=== PATIENT | male | born 1965 | race Caucasian/White ===

== ENCOUNTER 2017-11-27 11:48 | Day surgery (SDC) | payer OTHER ==
[~2017-11-27] VITALS: Ht 177.8 cm; Wt 67.4 kg
[~2017-11-27 11:48] MED LIST: BP MEDICATION; CHLO25 PO; ESCI10
== END 2017-11-27 14:05 | disposition home or self-care (01) ==
LOC: ORSCSDS 11:48
PROVIDERS: Surgery
PROC: 0DBN8ZX Excision of Sigmoid Colon, Via Natural or Artificial Opening Endoscopic, Diagnostic (ICD-10-PCS; principal; 2017-11-27 13:00)
DX: Z12.11 Encounter for screening for malignant neoplasm of colon (principal); D12.5 Benign neoplasm of sigmoid colon; Z83.71 Family history of colonic polyps; I10 Essential (primary) hypertension; F17.210 Nicotine dependence, cigarettes, uncomplicated; Z79.899 Other long term (current) drug therapy
CPT/HCPCS: 88305; J0330; J1980; J2250; J2405; J7120

== ENCOUNTER 2021-01-13 02:32 | Inpatient (IN) | payer OTHER ==
[~2021-01-13] VITALS: Ht 177.8 cm; Wt 68.2 kg
[~2021-01-13 02:32] MED LIST changes: -ESCI10; +ESCI10 PO
[2021-01-13 02:58] LABS: BASOPHILS ABSOLUTE AUTO 0.01 K/mm3 (0.00-0.23); BASOPHILS PERCENT AUTO 0 % (0-2); EOSINOPHILS ABSOLUTE AUTO 0.02 K/mm3 (0.00-0.68); EOSINOPHILS PERCENT AUTO 0 % (0-6); Hematocrit 39.1 % (37.0-53.0); Hemoglobin 14.1 g/dL (13.5-17.5); IMMATURE GRAN ABSOLUTE AUTO 0.01 K/mm3 (0.00-0.10); IMMATURE GRAN PERCENT AUTO 0 % (0-1); LYMPHOCYTES PERCENT AUTO 14 % (21-46); MONOCYTES ABSOLUTE AUTO 1.28 K/mm3 (0.16-1.47); MONOCYTES PERCENT AUTO 22 % (4-13); Mean Corpuscular HGB 34.6 pg (26.0-34.0); Mean Corpuscular HGB Conc 36.1 g/dL (31.5-36.5); Mean Corpuscular Volume 96 fL (80-100); Mean Platelet Volume 10.5 fL (9.1-12.4); NEUTROPHILS ABSOLUTE AUTO 3.79 K/mm3 (1.96-9.15); NEUTROPHILS PERCENT AUTO 64 % (41-73); Platelet Count 62 K/mm3 (150-400); RDW Coefficient Variation 12.6 % (11.7-14.2); Red Blood Cell Count 4.07 M/mm3 (4.30-5.90); White Blood Cell Count 5.91 K/mm3 (4.00-11.30)
[2021-01-13 03:10] LABS: Alanine Aminotransfer (ALT/SGP 28 U/L (12-78); Albumin, Blood 3.2 g/dL (3.4-5.0); Albumin/Globulin Ratio 0.7 (0.8-1.8); Alk Phos 77 U/L (50-136); Anion Gap 13 mmol/L (6-16); Aspartate Aminotrans (AST/SGOT 67 U/L (12-37); Bilirubin, Total 1.3 mg/dL (0.1-1.0); Blood Urea Nitrogen 8 mg/dL (8-24); Bun/Creatinine Ratio 11.1 (12.0-20.0); CO2, Blood 25 mmol/L (21-32); Calcium, Blood 9.1 mg/dL (8.5-10.1); Chloride, Blood 93 mmol/L (98-108); Creatinine, Blood 0.72 mg/dL (0.60-1.20); Ethanol (Alcohol), Blood, Med 23 mg/dL; Globulin, Blood 4.4 g/dL (2.2-4.0); Glomerular Filtration Rate >60 (60-); Glucose, Blood 118 mg/dL (70-99); Potassium, Blood 2.8 mmol/L (3.5-5.5); Sodium, Blood 131 mmol/L (136-145); Total Protein, Blood 7.6 g/dL (6.4-8.2)
--- NOTE | 2021-01-13 06:49 | NUR ---
ADMIT PT TO ROOM FROM ER. ALERT. ES 13. WITH PT AT BEDSIDE. ATIVAN 2MG ADMINISTERED. BANNANA BAG INFUSING. ON RA. STATES SEIZING AT 0000 LAST NIGHT. 12 PACK DRINKING HX PER NIGHT AND LAST DRINK WAS AROUNF 1999. PT'S VSS CURRENTLY. RESPONDING WELL TO ATIVAN BUT MAY NEED ANOTHER DOSE OF 2MG. PT QUITE TREMULOUS. UNABLE TO COMPLETE FULL ADMISSION ASSESMENT DUE TO TIME CONSTRAINT. PT ARRIVED AT AROUND 0600. BED ALARM IN PLACE. WILL CONTINUE TO MONITOR UNTIL SHIFT CHANGE.
--- NOTE | 2021-01-13 09:45 | NUR ---
PT ALERT TO SELF. TELE SHOWING SINUS TACH WITH HR 100-110. DENIES CHEST PAIN. ON ROOM AIR SATING ABOVE 94%. COMPLAINS OF HEADACHE, MEDICATED PER EMAR WITH TYLENOL. RESTLESS IN BED, HANGING LEGS OVER SIDE. SWEATY TO TOUCH, TREMORS NOTICED. CIWA SCORED 13. LIBRIUM GIVEN PER EMAR. SEIZURE PRECAUTIONS IN PLACE. NPO AT THIS TIME PER DR. POLK. SKIN REDDENED THROUGHOUT WITH DARK RED/PURPLE SPOTS LOCATED ON ABDOMINAL PANT LINE, AND COCCYX. BANNANA BAG INFUSED, AND K INFUSING. VITAL SIGNS STABLE. PT SLEEPING IN BED, AUDIBLE SNORING. WILL CONTINUE TO MONITOR.
[2021-01-13 12:32] LABS: Albumin, Blood 2.9 g/dL (3.4-5.0); Anion Gap 6 mmol/L (6-16); Blood Urea Nitrogen 6 mg/dL (8-24); Bun/Creatinine Ratio 10.9 (12.0-20.0); CO2, Blood 29 mmol/L (21-32); Calcium, Blood 8.8 mg/dL (8.5-10.1); Chloride, Blood 98 mmol/L (98-108); Creatinine, Blood 0.55 mg/dL (0.60-1.20); Glomerular Filtration Rate >60 (60-); Glucose, Blood 93 mg/dL (70-99); Phosphorus, Blood 1.9 mg/dL (2.5-4.9); Potassium, Blood 3.5 mmol/L (3.5-5.5); Sodium, Blood 133 mmol/L (136-145)
[2021-01-13 16:50] LABS: Anion Gap 5 mmol/L (6-16); Blood Urea Nitrogen 6 mg/dL (8-24); Bun/Creatinine Ratio 11.2 (12.0-20.0); CO2, Blood 28 mmol/L (21-32); Calcium, Blood 8.6 mg/dL (8.5-10.1); Chloride, Blood 101 mmol/L (98-108); Creatinine, Blood 0.54 mg/dL (0.60-1.20); Glomerular Filtration Rate >60 (60-); Glucose, Blood 88 mg/dL (70-99); Potassium, Blood 3.7 mmol/L (3.5-5.5); Sodium, Blood 134 mmol/L (136-145)
--- NOTE | 2021-01-13 17:58 | NUR ---
SHIFT SUMMARY: PT ALERT TO SELF AND WHEN VISITING. ON ROOM AIR SATING ABOVE 94%. TELE SHOWING SINUS TACH WITH HR 100-110'S. DENIES CHEST PAIN. CIWA RANGING FROM 8-14. MEDICATED PER EMAR WITH LIBRIUM AND ATIVAN. POTASSUM INFUSED THIS SHIFT. CURRENTLY HAS THIAMINE INFUSING INTO RIGHT FOREARM IV. SIEZURE PRECAUTIONS MAINTAINED. VITAL SIGNS REMAIN STABLE. NO ACUTE CHANGES. PATIENT SLEEPING THROUGHOUT SHIFT. ABLE TO TAKE SIPS OF WATER WITH LIBRIUM. NPO AT THIS TIME DUE TO SLEEPINESS. USING URINAL WITH ASSISTANCE. NOT CALLING APPROPRIATLY. WILL CONTINUE TO MONITOR AND REPORT OFF.
--- NOTE | 2021-01-13 21:32 | NUR ---
ASSUMED CARE OF PATIENT AT APPROXIMATELY 1905 FROM JULIO Camarena RN. PATIENT ALERT AND ORIENTED TO SELF AND . PATIENT NOT ABLE TO STATE DATE; REPORTS 2000; HALLUCINATING; CIWA 9; LIBRIUM GIVEN PER ORDER. CONFUSED; BED ALARM IN PLACE; WEAK; FALL RISK. SR ON TELE; OXYGEN SATURATION ABOVE 90% ON ROOM AIR. VOIDS IN URINAL; ATTENDS IN PLACE. PIV X2 S/L. PATIENT CURRENTLY RESTING IN BED; CALL LIGHT IN REACH; BED IN LOWEST POSITION; BED ALARM ON.
--- NOTE | 2021-01-13 22:12 | NUR ---
PATIENT ATTEMPTED TO AMBULATED; IRRITABLE; ANXIOUS; CONFUSED; PCT ROUNDED WHEN PATIENT TRYING TO GET UP
[2021-01-14 04:33] LABS: BASOPHILS ABSOLUTE AUTO 0.02 K/mm3 (0.00-0.23); BASOPHILS PERCENT AUTO 0 % (0-2); EOSINOPHILS ABSOLUTE AUTO 0.15 K/mm3 (0.00-0.68); EOSINOPHILS PERCENT AUTO 3 % (0-6); Hemoglobin 13.5 g/dL (13.5-17.5); IMMATURE GRAN ABSOLUTE AUTO 0.02 K/mm3 (0.00-0.10); IMMATURE GRAN PERCENT AUTO 0 % (0-1); LYMPHOCYTES ABSOLUTE AUTO 1.36 K/mm3 (0.84-5.20); LYMPHOCYTES PERCENT AUTO 26 % (21-46); MONOCYTES ABSOLUTE AUTO 0.82 K/mm3 (0.16-1.47); MONOCYTES PERCENT AUTO 16 % (4-13); Mean Corpuscular HGB 34.7 pg (26.0-34.0); Mean Corpuscular HGB Conc 34.6 g/dL (31.5-36.5); Mean Corpuscular Volume 100 fL (80-100); Mean Platelet Volume 10.6 fL (9.1-12.4); NEUTROPHILS ABSOLUTE AUTO 2.84 K/mm3 (1.96-9.15); NEUTROPHILS PERCENT AUTO 55 % (41-73); Platelet Count 57 K/mm3 (150-400); RDW Coefficient Variation 12.7 % (11.7-14.2); RDW Standard Deviation 47.1 fL (35.1-46.3); Red Blood Cell Count 3.89 M/mm3 (4.30-5.90); White Blood Cell Count 5.21 K/mm3 (4.00-11.30)
[2021-01-14 04:57] LABS: Alanine Aminotransfer (ALT/SGP 26 U/L (12-78); Albumin, Blood 2.7 g/dL (3.4-5.0); Albumin/Globulin Ratio 0.7 (0.8-1.8); Alk Phos 65 U/L (50-136); Anion Gap 3 mmol/L (6-16); Aspartate Aminotrans (AST/SGOT 86 U/L (12-37); Bilirubin, Total 1.7 mg/dL (0.1-1.0); Blood Urea Nitrogen 5 mg/dL (8-24); Bun/Creatinine Ratio 9.9 (12.0-20.0); CO2, Blood 29 mmol/L (21-32); Calcium, Blood 8.2 mg/dL (8.5-10.1); Chloride, Blood 103 mmol/L (98-108); Globulin, Blood 3.9 g/dL (2.2-4.0); Glomerular Filtration Rate >60 (60-); Glucose, Blood 85 mg/dL (70-99); Potassium, Blood 3.4 mmol/L (3.5-5.5); Sodium, Blood 135 mmol/L (136-145); Total Protein, Blood 6.6 g/dL (6.4-8.2)
--- NOTE | 2021-01-14 06:16 | NUR ---
PATIENT SLEPT ABOUT EIGHT HOURS LAST NIGHT. DID NOT USE CALL LIGHT; YELLED OUT INTO HALLWAY; CONFUSED. WANTS TO GET OUT OF BED BUT VERY TREMULOUS AND WEAK. FALL RISK. CIWA INCREASING T/O NIGHT; MEDICATED MULTIPLE TIMES. PATIENT HALLUCINATING OFF AND ON. VSS. NO OTHER ACUTE CHANGES TO REPORT.
--- NOTE | 2021-01-14 10:49 | NUR ---
ADMIT: 01/12/21 DISCHARGE: DX: Alcohol withdrawal seizure CC: cpeabody THERESA CALL: RESIDENCE: home with Candie CAREGIVER: Candie Mom [place] DX: alcohol abuse, htn, cervical spondylosis, chronic back pain, liver disease, depression, see list DME: no record CCM: no record HOME HEALTH: no record SUMMARY: Admit 01/12/21 01/13/21 no eta for discharge at this time. cp IMPRESSION: 1. Alcohol withdrawal seizure. It was a witnessed seizure by the patient's significant other described as tonic-clonic seizure lasted about 2 to 5 minutes. We will do p.r.n. Ativan as needed for seizures and seizure precautions.
--- NOTE | 2021-01-14 18:07 | NUR ---
SHIFT NOTE PT HAS BECOME MORE CLEAR MENTALLY T/O THE SHIFT, PT HAS RECIEVED MULTIPLE DOSES OF LIBRIUM AND 1 DOSE OF ATIVAN THIS SHIFT WHICH WERE ALL TOLERATED WELL. PT EATING AND DRINKING WELL. HE DID TAKE HIS MEDICATIONS IN APPLESAUCE TODAY. RESTRAINTS WERE APPLIED THIS MORNING PT WAS REMOVING LINES, KICKING AT STAFF, AND ATTEMPTING TO EXIT THE BED. PT REPOSITIONED REGULARLY T/O THE DAY. ATTENDED AND LINENS WERE CHANGED, TIM CARE PERFORMED. PT IS ORIENTED TO SELF AND FAMILY. PT WITH GARBLED SPEECH, SLOW TO ANSWER QUESTIONS
--- NOTE | 2021-01-14 21:35 | NUR ---
ASSUMED CARE OF PATIENT AT APPROXIMATELY 1905 FROM FATOU Marks RN. PATIENT ALERT AND ORIENTED TO SELF AND . PATIENT NOT ABLE TO STATE DATE; REPORTS January; HALLUCINATING; CIWA 13; LIBRIUM GIVEN PER ORDER. CONFUSED; BED ALARM IN PLACE; WEAK; FALL RISK. SOFT WRIST RESTRAINTS. ST ON TELE; OXYGEN SATURATION ABOVE 90% ON ROOM AIR. INCONTINENT; ATTENDS IN PLACE. PIV X2 S/L. PATIENT CURRENTLY RESTING IN BED; CALL LIGHT IN REACH; BED IN LOWEST POSITION; BED ALARM ON.
[2021-01-15 04:47] LABS: BASOPHILS ABSOLUTE AUTO 0.03 K/mm3 (0.00-0.23); BASOPHILS PERCENT AUTO 1 % (0-2); EOSINOPHILS ABSOLUTE AUTO 0.16 K/mm3 (0.00-0.68); EOSINOPHILS PERCENT AUTO 3 % (0-6); Hematocrit 41.3 % (37.0-53.0); Hemoglobin 14.4 g/dL (13.5-17.5); IMMATURE GRAN ABSOLUTE AUTO 0.02 K/mm3 (0.00-0.10); IMMATURE GRAN PERCENT AUTO 0 % (0-1); LYMPHOCYTES ABSOLUTE AUTO 1.33 K/mm3 (0.84-5.20); LYMPHOCYTES PERCENT AUTO 22 % (21-46); MONOCYTES PERCENT AUTO 15 % (4-13); Mean Corpuscular HGB 34.7 pg (26.0-34.0); Mean Corpuscular HGB Conc 34.9 g/dL (31.5-36.5); Mean Corpuscular Volume 100 fL (80-100); Mean Platelet Volume 10.5 fL (9.1-12.4); NEUTROPHILS ABSOLUTE AUTO 3.49 K/mm3 (1.96-9.15); NEUTROPHILS PERCENT AUTO 59 % (41-73); Platelet Count 65 K/mm3 (150-400); RDW Coefficient Variation 12.3 % (11.7-14.2); RDW Standard Deviation 45.3 fL (35.1-46.3); Red Blood Cell Count 4.15 M/mm3 (4.30-5.90); White Blood Cell Count 5.93 K/mm3 (4.00-11.30)
[2021-01-15 05:02] LABS: Alanine Aminotransfer (ALT/SGP 40 U/L (12-78); Albumin, Blood 3.1 g/dL (3.4-5.0); Albumin/Globulin Ratio 0.7 (0.8-1.8); Alk Phos 71 U/L (50-136); Anion Gap 8 mmol/L (6-16); Aspartate Aminotrans (AST/SGOT 137 U/L (12-37); Bilirubin, Total 1.5 mg/dL (0.1-1.0); Blood Urea Nitrogen 8 mg/dL (8-24); Bun/Creatinine Ratio 14.7 (12.0-20.0); CO2, Blood 29 mmol/L (21-32); Calcium, Blood 8.8 mg/dL (8.5-10.1); Chloride, Blood 98 mmol/L (98-108); Creatinine, Blood 0.55 mg/dL (0.60-1.20); Globulin, Blood 4.5 g/dL (2.2-4.0); Glomerular Filtration Rate >60 (60-); Glucose, Blood 82 mg/dL (70-99); Sodium, Blood 135 mmol/L (136-145); Total Protein, Blood 7.6 g/dL (6.4-8.2)
--- NOTE | 2021-01-15 12:18 | NUR ---
PT ARRIVED TO THE MEDICAL FLOOR VIA BED, PT IS DROWYS AWAKENS WITH VERBAL STIMULI, PT ORIENTED TO THE ROOM CALL SYSTEM, HOWEVER, THE PT IS IN SOFT WRIST RESTRAINTS WILL ROUND HOURLY, PT APPEARS TO BE BREATHING EASILY ON RA AT THIS TIME, BED ALARM ON, REPORT TAKEN FROM FATOU RUBI IN PCU
--- NOTE | 2021-01-15 13:19 | NUR ---
01/15/21- Per chart review with Dr. Abernathy, no plan for d/c at this time. Called Adriana with [facility] Substance abuse case management. She will get a referral placed and pt set-up in their system. Pt's catalytic case operator will be Naida Hollis. They will call with update when the pt is set up with date/time of assessment for treatment/services. -stephanie
--- NOTE | 2021-01-15 16:13 | NUR ---
01/15/21- Per chart review with Dr. Abernathy, no plan for d/c at this time. Called Adriana with [facility] Substance abuse case management. She will get a referral placed and pt set-up in their system. Pt's immigration case manager will be Naida Hollis. They will call with update when the pt is set up with date/time of assessment for treatment/services. Received call from [facility] requesting pt information since they received a referral from pt's insurance. Provided requested information. Went to meet with pt, he was however asleep and not able to arouse. was in the room. Spoke with her about treatment options and that pt's insurance has sent referral over to [facility]. stated that he is not able to do the assessment at this time. She would like him to get help. Provided with information about [facility] in [facility]. states that she will talk with him once he is coherent enough to have conversation. -stephanie
--- NOTE | 2021-01-15 18:32 | NUR ---
PT WAS A TRANSFER FROM THE PCU TODAY AROUND 1200, THE PT IS ALERT ORIENTED TO SELF, THE PT HAD SOME CONFUSED SPEACH AND RESTLESSNESS, THE PT WAS IN SOFT WRIST RESTRAINTS, PT WAS GIVEN LIBRIUM 50MG AND ATIVAN 2MG FOR CWAW SCORE OF 11, THE PT SINCE THEN HAS BEEN SLEEPING, RESTRAINTS WERE DC'D, THE PT APPEARS TO BE BREATHING EASILY, WAS AT THE BEDSIDE THIS AFTERNOON, CALL LIGHT IN REACH PT REPOSTIONED T/O THE DAY, WILL CONTINUE TO MONITOR AND ASSESS FOR CHANGES
--- NOTE | 2021-01-16 04:13 | NUR ---
CLUBHOUSE ATTENDANT SUMMARY PT A/O X2-3. CIWAS MOSTLY STABLE RANGING FROM 4-8. PT DOES NOT APPEAR LIKE HE IS HAVING HALLUCINATIONS. SLIGHTLY AGITATED. MEDICATED ONCE SO FAR WITH IV ATIVAN. VSS. PT DENIES PAIN AND NAUSEA. NO SOB NOTED. CALL LIGHT WITHIN REACH, BED ALARM ON. WILL CONTINUE TO MONITOR.
[2021-01-16 04:53] LABS: BASOPHILS ABSOLUTE AUTO 0.02 K/mm3 (0.00-0.23); BASOPHILS PERCENT AUTO 0 % (0-2); EOSINOPHILS ABSOLUTE AUTO 0.17 K/mm3 (0.00-0.68); EOSINOPHILS PERCENT AUTO 3 % (0-6); Hematocrit 39.7 % (37.0-53.0); Hemoglobin 13.7 g/dL (13.5-17.5); IMMATURE GRAN ABSOLUTE AUTO 0.03 K/mm3 (0.00-0.10); IMMATURE GRAN PERCENT AUTO 1 % (0-1); LYMPHOCYTES ABSOLUTE AUTO 1.31 K/mm3 (0.84-5.20); LYMPHOCYTES PERCENT AUTO 20 % (21-46); MONOCYTES ABSOLUTE AUTO 1.33 K/mm3 (0.16-1.47); MONOCYTES PERCENT AUTO 20 % (4-13); Mean Corpuscular HGB 34.4 pg (26.0-34.0); Mean Corpuscular HGB Conc 34.5 g/dL (31.5-36.5); Mean Corpuscular Volume 100 fL (80-100); Mean Platelet Volume 10.4 fL (9.1-12.4); NEUTROPHILS ABSOLUTE AUTO 3.75 K/mm3 (1.96-9.15); NEUTROPHILS PERCENT AUTO 57 % (41-73); Platelet Count 82 K/mm3 (150-400); RDW Coefficient Variation 12.5 % (11.7-14.2); RDW Standard Deviation 46.1 fL (35.1-46.3); Red Blood Cell Count 3.98 M/mm3 (4.30-5.90); White Blood Cell Count 6.61 K/mm3 (4.00-11.30)
[2021-01-16 05:18] LABS: Alanine Aminotransfer (ALT/SGP 40 U/L (12-78); Albumin/Globulin Ratio 0.7 (0.8-1.8); Alk Phos 68 U/L (50-136); Anion Gap 8 mmol/L (6-16); Aspartate Aminotrans (AST/SGOT 135 U/L (12-37); Bilirubin, Total 1.5 mg/dL (0.1-1.0); Blood Urea Nitrogen 9 mg/dL (8-24); Bun/Creatinine Ratio 17.2 (12.0-20.0); CO2, Blood 25 mmol/L (21-32); Calcium, Blood 8.8 mg/dL (8.5-10.1); Chloride, Blood 103 mmol/L (98-108); Creatinine, Blood 0.52 mg/dL (0.60-1.20); Globulin, Blood 4.2 g/dL (2.2-4.0); Glomerular Filtration Rate >60 (60-); Glucose, Blood 89 mg/dL (70-99); Potassium, Blood 3.7 mmol/L (3.5-5.5); Sodium, Blood 136 mmol/L (136-145); Total Protein, Blood 7.2 g/dL (6.4-8.2)
--- NOTE | 2021-01-16 16:04 | NUR ---
PATIENT IS EXTREMELY LETHARGIC THIS SHIFT. HE DID REQUIRE A DOSE OF IV LORAZEPAM AT THE START OF THE SHIFT DUE TO HIGH CIWA SCORE AND INCREASING BEHAVIORS. HE HAS SINCE BEEN MAINTAINING CIWA SCORES <8. WHEN VOCAL THE PATIENT IS NONSENSICAL. PATIENT IS IN A DAKSHA VEST DUE TO ALOC TO INCREASE HIS SAFETY. IS AT BEDSIDE AT THIS TIME. CALL LIGHT IN REACH.
--- NOTE | 2021-01-17 05:09 | NUR ---
MACHINE I CUTTER SUMMARY PT A/O X3. HE IS SLOW TO RESPOND AND APPEARS WITHDRAWN, HOWEVER ABLE TO ANSWER APPROPRIATE QUESTIONS. SLEPT WELL TOINIGHT. CIWAS BEEN 8 OR LESS. MEDICATED ONCE TONIGHT WITH ATIVAN. PT CURRENTLY ASLEEP. VSS. NO ACUTE CHANGES. BED ALARM ON, CALL LIGHT WITHIN REACH.
[2021-01-17 05:15] LABS: BASOPHILS ABSOLUTE AUTO 0.03 K/mm3 (0.00-0.23); BASOPHILS PERCENT AUTO 1 % (0-2); EOSINOPHILS PERCENT AUTO 3 % (0-6); Hematocrit 40.1 % (37.0-53.0); Hemoglobin 13.7 g/dL (13.5-17.5); IMMATURE GRAN ABSOLUTE AUTO 0.02 K/mm3 (0.00-0.10); IMMATURE GRAN PERCENT AUTO 0 % (0-1); LYMPHOCYTES ABSOLUTE AUTO 1.19 K/mm3 (0.84-5.20); LYMPHOCYTES PERCENT AUTO 19 % (21-46); MONOCYTES PERCENT AUTO 23 % (4-13); Mean Corpuscular HGB 34.1 pg (26.0-34.0); Mean Corpuscular HGB Conc 34.2 g/dL (31.5-36.5); Mean Corpuscular Volume 100 fL (80-100); Mean Platelet Volume 10.6 fL (9.1-12.4); NEUTROPHILS ABSOLUTE AUTO 3.34 K/mm3 (1.96-9.15); NEUTROPHILS PERCENT AUTO 54 % (41-73); Platelet Count 84 K/mm3 (150-400); RDW Coefficient Variation 12.4 % (11.7-14.2); RDW Standard Deviation 45.2 fL (35.1-46.3); Red Blood Cell Count 4.02 M/mm3 (4.30-5.90); White Blood Cell Count 6.18 K/mm3 (4.00-11.30)
[2021-01-17 05:34] LABS: Alanine Aminotransfer (ALT/SGP 46 U/L (12-78); Albumin, Blood 2.9 g/dL (3.4-5.0); Albumin/Globulin Ratio 0.7 (0.8-1.8); Alk Phos 64 U/L (50-136); Anion Gap 5 mmol/L (6-16); Aspartate Aminotrans (AST/SGOT 123 U/L (12-37); Bilirubin, Total 1.5 mg/dL (0.1-1.0); Blood Urea Nitrogen 7 mg/dL (8-24); Bun/Creatinine Ratio 13.7 (12.0-20.0); CO2, Blood 27 mmol/L (21-32); Calcium, Blood 8.6 mg/dL (8.5-10.1); Chloride, Blood 102 mmol/L (98-108); Creatinine, Blood 0.51 mg/dL (0.60-1.20); Globulin, Blood 4.2 g/dL (2.2-4.0); Glomerular Filtration Rate >60 (60-); Glucose, Blood 102 mg/dL (70-99); Potassium, Blood 4.1 mmol/L (3.5-5.5); Sodium, Blood 134 mmol/L (136-145); Total Protein, Blood 7.1 g/dL (6.4-8.2)
--- NOTE | 2021-01-17 15:32 | NUR ---
PATIENT HAS HAD AN UNEVENTFUL DAY. NO NEED FOR IV ATIVAN THIS SHIFT SO FAR. PATIENT HAS BEEN VERY CALM, LETHARGIC AND COOPERATIVE WITH STAFF. IV FLUIDS CONTINUE PER EMAR. CIWA SCORES HAVE BEEN STABLE. COMES IN T/O THE DAY TO ASSIST WITH PATIENT CARE AND IS VERY HELPFUL. PATIENT RESTING IN BED AT THIS TIME. CALL LIGHT IN REACH.
--- NOTE | 2021-01-17 19:15 | NUR ---
ASSUMED CARE RECEIVED REPORT FROM CHLOE Roe RN. PT ASLEEP, IN NO ACUTE DISTRESS. NO ACUTE NEEDS ASSESSED AT THIS TIME. CALL LIGHT, POSSESSIONS IN REACH, BED IN LOW POSITION WITH ALARMS ON.
--- NOTE | 2021-01-18 05:36 | NUR ---
GANG BOSS SUMMARY PT ASLEEP, IN NO ACUTE DISTRESS. HAS HAD AN UNEVENTFUL NIGHT, PLEASANT AND COOPERATIVE WITH CARES. VS REVIEWED,WNL. CIWAS STABLE. SLEPT T/O MUCH OF THE NIGHT. NO ACUTE CHANGES IN CONDITION TO REPORT OVERNIGHT. DENIES PAIN OR NEEDS AT THIS TIME. CALL LIGHT, POSSESSIONS IN REACH, BED IN LOW POSITION WITH ALARMS ON. WILL CONTINUE TO PROVIDE CARE UNTIL REPORT GIVEN TO ONCOMING RN.
[2021-01-18 14:29] LABS: BASOPHILS ABSOLUTE AUTO 0.04 K/mm3 (0.00-0.23); BASOPHILS PERCENT AUTO 1 % (0-2); EOSINOPHILS ABSOLUTE AUTO 0.12 K/mm3 (0.00-0.68); EOSINOPHILS PERCENT AUTO 2 % (0-6); Hematocrit 42.3 % (37.0-53.0); Hemoglobin 14.8 g/dL (13.5-17.5); IMMATURE GRAN ABSOLUTE AUTO 0.02 K/mm3 (0.00-0.10); IMMATURE GRAN PERCENT AUTO 0 % (0-1); LYMPHOCYTES ABSOLUTE AUTO 1.28 K/mm3 (0.84-5.20); LYMPHOCYTES PERCENT AUTO 18 % (21-46); MONOCYTES ABSOLUTE AUTO 1.61 K/mm3 (0.16-1.47); MONOCYTES PERCENT AUTO 22 % (4-13); Mean Corpuscular HGB 34.3 pg (26.0-34.0); Mean Corpuscular Volume 98 fL (80-100); Mean Platelet Volume 10.1 fL (9.1-12.4); NEUTROPHILS ABSOLUTE AUTO 4.17 K/mm3 (1.96-9.15); NEUTROPHILS PERCENT AUTO 58 % (41-73); Platelet Count 112 K/mm3 (150-400); RDW Coefficient Variation 12.2 % (11.7-14.2); RDW Standard Deviation 44.7 fL (35.1-46.3); Red Blood Cell Count 4.31 M/mm3 (4.30-5.90); White Blood Cell Count 7.24 K/mm3 (4.00-11.30)
--- NOTE | 2021-01-18 18:50 | NUR ---
SHIFT SUMMARY YE ATE BREAKFAST WITH ASSIST AND THEN HAD HIS PILLS IN APPLESAUCE FOLLOWED BY A LARGE AMOUNT OF PROJECTILE VOMITTING. SWEATY DURING THIS EPISODE, ENDORSED SEEING THINGS ON THE GROUND, SCORED HIGH ON CIWAH AND GOT IV ATIVAN. NO COMPLAINTS OF NAUSEA THE REST OF THE SHIFT, NO MORE EPISODES OF NAUSEA. SOME QUESTION OF ASPIRATION EVENT, OFFICE CLERK CARMEN ORDERED. VISITED. UP WITH AO1 AND GAIT BELT TO BS, CONTINENT / INCONT THIS SHIFT. HAD BM IN BSC. AFTER INITIAL MORNING ATIVAN, HE NO LONGER WAS SCORING ABOVE 8 ON CIWAH, NO MORE ATIVAN GIVEN. TOOK PILLS WHOLE IN APPLESAUCE. CONFUSED BUT DIRECTABLE CALL LIGHT IN REACH, BED ALARM ON, WCTM
--- NOTE | 2021-01-19 08:58 | NUR ---
called dr christianson and informed him that pt is tachycardic at 120 and temp of 100.8 and pt complaining of indigestion. assayer at bedside. awaiting orders
--- NOTE | 2021-01-19 16:59 | NUR ---
01/19/21- RECEIVED CALL FROM ADMISSION AT [facility], LET THEM KNOW THAT PT IS NOT CAPABLE OF GOING THROUGH AN ASSESSMENT AT THIS TIME DUE TO BEING IN WITHDRAWAL AND CONCERN OF ALCOHOL INDUCED DEMENTIA. PER CHART REVIEW WITH DR. PANDA, THERE IS CONCERN THE PT HAS ASPIRATED. NO PLAN FOR D/C AT THIS TIME. -THOR 01/18/21 (LATE ENTRY)- PER CHART REVIEW WITH DR. PANDA, PT IS STILL ACTIVELY WITHDRAWING FROM ALCOHOL. PT'S CIWA WAS 17 AT 9:45. PT AND OT WERE NOT ABLE TO WORK WITH PT DUE TO WITHDRAW SYMPTOMS. THERE ARE SOME CONCERNS THAT THE PT HAS ALCOHOL INDUCED DEMENTIA. HIS HAS REPORTED TO STAFF THAT PAST THERAPY WAS NOT EFFECTIVE AND HE WAS UNABLE TO PARTICIPATE PROPERLY. THE RECOMMENDATION IS FOR PT TO GO TO [facility]. THERE IS ALSO CONCERN ABOUT PT'S OPIOID ADDICTION/DEPENDENCE BECAUSE HE HAS BEEN TAKING ILLICIT OXYCODONE FOR BACK PAIN. WONDER IF PT WOULD DO WELL ON BUPRENORPHINE. -JAJAW
--- NOTE | 2021-01-19 19:04 | NUR ---
SHIFT SUMMARY YE SCORED LOW ON CIWAH SCALE, DIDN'T GO ABOVE 8. HELD AFTERNOON LIBRIUM DUE TO PT'S SLEEPINESS. WAKENED UP MUCH MORE AFTER THIS, COMPLAINED OF PAIN HE HAS CHRONICALLY IN NECK AND BACK. TYLENOL AND HEAT PACK WERE INEFFECTIVE, CALLED DR PANDA AND GOT PO OXY. PT VOMITTED AGAIN THIS MORNING AFTER HIS BREAKFAST AND MEDS, NOT NAUSEOUS BEFOREHAND. DR PANDA AWARE, ORDERED XR ESOPHOGRAM. PER XR, HE IS TO BE NPO AFTER MIDNIGHT, NIGHT NURSE AWARE. HUMANITIES DIVISION CHAIR CAME AND RECOMMENDING PUREE, NECTAR THICK BY SPOON, NO STRAWS. CXR DONE. CALL LIGHT IN REACH, BED ALARM ON, [facility]
--- NOTE | 2021-01-20 05:39 | NUR ---
PT with hx of alcohol withdrawl seizure continues high fall risk porr safety awareness, little insight into his poor balance & unsafe mobility. He has very ataxic gait, can't be left unsupervised on BSC or BR because he wi;ll stand unassisted & has fallen here recently. Scheduled librium 25 mg PT slept most of shift woke up & watched tv intermittantly. NPO for esophogram. Speech therapy changed to pureed diet & thickened liquid by spoon. was in to feed 50% dinner. Using kpad for chronic pain. Had oxycodone 5 mg end of day shift & asking for more after several hours. Oxy 5 ordered Q 12 hrs PRN. CIWA score 12 & 7. Seizure & fall precautions continue.
--- NOTE | 2021-01-20 12:11 | NUR ---
MRI SCREENING FORM RECIEVED- PT UNABLE TO ANSWER QUESTIONS TO FILL OUT THE FORM. ATTEMPTED TO CALL PT SO AND WAS UNABLE TO REACH. WILL ATTEMPT TO CALL AGAIN LATER.
[2021-01-21 05:19] LABS: BASOPHILS ABSOLUTE AUTO 0.07 K/mm3 (0.00-0.23); BASOPHILS PERCENT AUTO 1 % (0-2); EOSINOPHILS ABSOLUTE AUTO 0.32 K/mm3 (0.00-0.68); EOSINOPHILS PERCENT AUTO 4 % (0-6); Hematocrit 41.4 % (37.0-53.0); Hemoglobin 14.3 g/dL (13.5-17.5); IMMATURE GRAN ABSOLUTE AUTO 0.05 K/mm3 (0.00-0.10); IMMATURE GRAN PERCENT AUTO 1 % (0-1); LYMPHOCYTES ABSOLUTE AUTO 1.62 K/mm3 (0.84-5.20); LYMPHOCYTES PERCENT AUTO 19 % (21-46); MONOCYTES ABSOLUTE AUTO 1.77 K/mm3 (0.16-1.47); MONOCYTES PERCENT AUTO 21 % (4-13); Mean Corpuscular HGB 34.9 pg (26.0-34.0); Mean Corpuscular HGB Conc 34.5 g/dL (31.5-36.5); Mean Corpuscular Volume 101 fL (80-100); Mean Platelet Volume 10.4 fL (9.1-12.4); NEUTROPHILS ABSOLUTE AUTO 4.61 K/mm3 (1.96-9.15); NEUTROPHILS PERCENT AUTO 55 % (41-73); Platelet Count 133 K/mm3 (150-400); RDW Coefficient Variation 12.6 % (11.7-14.2); RDW Standard Deviation 47.3 fL (35.1-46.3); White Blood Cell Count 8.44 K/mm3 (4.00-11.30)
[2021-01-21 05:40] LABS: Alanine Aminotransfer (ALT/SGP 73 U/L (12-78); Albumin, Blood 2.9 g/dL (3.4-5.0); Albumin/Globulin Ratio 0.7 (0.8-1.8); Alk Phos 60 U/L (50-136); Anion Gap 3 mmol/L (6-16); Aspartate Aminotrans (AST/SGOT 66 U/L (12-37); Bilirubin, Total 0.7 mg/dL (0.1-1.0); Blood Urea Nitrogen 12 mg/dL (8-24); Bun/Creatinine Ratio 20.4 (12.0-20.0); CO2, Blood 33 mmol/L (21-32); Chloride, Blood 98 mmol/L (98-108); Creatinine, Blood 0.59 mg/dL (0.60-1.20); Globulin, Blood 4.2 g/dL (2.2-4.0); Glomerular Filtration Rate >60 (60-); Glucose, Blood 88 mg/dL (70-99); Potassium, Blood 4.2 mmol/L (3.5-5.5); Sodium, Blood 134 mmol/L (136-145); Total Protein, Blood 7.1 g/dL (6.4-8.2)
--- NOTE | 2021-01-21 17:45 | NUR ---
01/21/21- PER CHART REVIEW WITH DR. PANDA, PT IS STILL EXPERIENCING WITHDRAWAL. YANELY WITH [facility] CALLED TO FOLLOW UP ON REFERRAL TO [facility]. DISCUSSED WITH HER PT. HEALTH AND THE CONCERN ABOUT HIM HAVING DEMENTIA AND AT THIS TIME IS NOT APPROPRIATE FOR SCREENING. SHE REQUESTED THAT WHEN/IF PT IMPROVES ENOUGH TO GO TO TREATMENT TO CALL AND HAVE HIM COMPLETE SCREENING. -THOR 01/20/21- PT STILL EXPERIENCING WITHDRAWAL, THERE IS CONCERN HE HAS ALCOHOL INDUCED DEMENTIA. NO PLAN FOR D/C AT THIS TIME. -THOR
--- NOTE | 2021-01-21 18:40 | NUR ---
SHIFT SUMMARY PT AxOx4. SLEEPY, YET COOPERATIVE THIS SHIFT. PT HAD MRI OF SPINE TODAY. REPORTS CHRONIC NECK/BACK PAIN. MEDICATED PER EMAR. CIWA=4. AMBULATED TO BATHROOM TODAY WITH 1 ASSIST/FWW AND GB. IN ROOM WHEN DOCTOR DID ROUNDS, DISCUSSED PLAN OF CARE. PER DR PANDA, PROBABLE DC TO HOME TOMORROW. PT TOLERATING DIET WELL. REPORTS FEELING BACKED UP/CONSTIPATED. SAT ON TOILET AND DRANK PRUNE JUICE TO ENCOURAGE BM. VITALS REVIEWED. PATIENT CURRENTLY RESTING IN BED WITH CALL LIGHT IN REACH.
--- NOTE | 2021-01-22 04:32 | NUR ---
SUMMARY PT HAD NO NEW ISSUES NOTED. PT HAS BEEN RESTING T/O SHIFT. PT TX FOR BACK PAIN PER EMAR. PT HAS AMBULATED TO RESTROOM WELL. PT CURRENTLY SLEEPING IN NO DISTRESS. CALL LIGHT IN REACH.
[2021-01-22 05:49] LABS: BASOPHILS ABSOLUTE AUTO 0.06 K/mm3 (0.00-0.23); BASOPHILS PERCENT AUTO 1 % (0-2); EOSINOPHILS ABSOLUTE AUTO 0.34 K/mm3 (0.00-0.68); EOSINOPHILS PERCENT AUTO 4 % (0-6); Hematocrit 39.2 % (37.0-53.0); Hemoglobin 13.3 g/dL (13.5-17.5); IMMATURE GRAN ABSOLUTE AUTO 0.03 K/mm3 (0.00-0.10); IMMATURE GRAN PERCENT AUTO 0 % (0-1); LYMPHOCYTES ABSOLUTE AUTO 1.63 K/mm3 (0.84-5.20); LYMPHOCYTES PERCENT AUTO 20 % (21-46); MONOCYTES ABSOLUTE AUTO 1.44 K/mm3 (0.16-1.47); MONOCYTES PERCENT AUTO 18 % (4-13); Mean Corpuscular HGB 34.5 pg (26.0-34.0); Mean Corpuscular HGB Conc 33.9 g/dL (31.5-36.5); Mean Corpuscular Volume 102 fL (80-100); Mean Platelet Volume 10.2 fL (9.1-12.4); NEUTROPHILS ABSOLUTE AUTO 4.64 K/mm3 (1.96-9.15); NEUTROPHILS PERCENT AUTO 57 % (41-73); Platelet Count 150 K/mm3 (150-400); RDW Coefficient Variation 12.7 % (11.7-14.2); RDW Standard Deviation 47.8 fL (35.1-46.3); Red Blood Cell Count 3.86 M/mm3 (4.30-5.90); White Blood Cell Count 8.14 K/mm3 (4.00-11.30)
[2021-01-22 06:17] LABS: Alanine Aminotransfer (ALT/SGP 64 U/L (12-78); Albumin, Blood 2.7 g/dL (3.4-5.0); Albumin/Globulin Ratio 0.7 (0.8-1.8); Alk Phos 62 U/L (50-136); Anion Gap 4 mmol/L (6-16); Aspartate Aminotrans (AST/SGOT 53 U/L (12-37); Bilirubin, Total 0.7 mg/dL (0.1-1.0); Blood Urea Nitrogen 13 mg/dL (8-24); Bun/Creatinine Ratio 21.2 (12.0-20.0); CO2, Blood 32 mmol/L (21-32); Calcium, Blood 8.9 mg/dL (8.5-10.1); Chloride, Blood 100 mmol/L (98-108); Creatinine, Blood 0.61 mg/dL (0.60-1.20); Globulin, Blood 4.1 g/dL (2.2-4.0); Glomerular Filtration Rate >60 (60-); Glucose, Blood 85 mg/dL (70-99); Magnesium, Blood 1.7 mg/dL (1.6-2.4); Phosphorus, Blood 4.2 mg/dL (2.5-4.9); Potassium, Blood 4.3 mmol/L (3.5-5.5); Sodium, Blood 136 mmol/L (136-145); Total Protein, Blood 6.8 g/dL (6.4-8.2)
[2021-01-22] MEDS ORDERED: POTA10T PO (16:35)
[2021-01-22] MEDS ORDERED: OXYC5 PO (16:35)
[2021-01-22] MEDS ORDERED: B-1100 M1 PO (16:36)
--- NOTE | 2021-01-22 18:05 | NUR ---
PATIENT DISCHARGE: PATIENT DISCHARGED TO HOME THIS SHIFT. MEDICATION RECONCILIATION COMPLETED; MED LIST FAXED TO [facility]; HARD SCRIPT PROVIDED TO PATIENT FOR CONTROLLED SUBSTANCE. DISCHARGE EDUCATION COMPLETED WITH PATIENT AND FAMILY. PATIENT TRANSPORTED TO EXIT BY [facility] STAFF WITH WHEELCHAIR AT 1650. PATIENT DEPARTED [facility] VIA PRIVATE AUTO.
== END 2021-01-22 16:56 | disposition home or self-care (01) | DRG 897 ==
LOC: ER 02:32 → PCU 02:34 → ERHOLD 02:34 → PCU 05:58 → MEDS 01-15 11:59 → ENPENDDIS 01-22 15:32 → MEDS 01-22 16:56
PROVIDERS: Emergency Medicine; Family Medicine; Hospitalist; ADMIT Family Medicine
DX: F10.231 Alcohol dependence with withdrawal delirium (principal); E87.1 Hypo-osmolality and hyponatremia; Y90.1 Blood alcohol level of 20-39 mg/100 ml; F17.210 Nicotine dependence, cigarettes, uncomplicated; G40.409 Other generalized epilepsy and epileptic syndromes, not intractable, without status epilepticus; E87.6 Hypokalemia; D69.6 Thrombocytopenia, unspecified; F32.9 Major depressive disorder, single episode, unspecified; F10.27 Alcohol dependence with alcohol-induced persisting dementia; R26.0 Ataxic gait; G89.29 Other chronic pain; M54.2 Cervicalgia; R11.12 Projectile vomiting; Z78.1 Physical restraint status
CPT/HCPCS: 36415; 70450; 71046; 72141; 74240; 76705; 80048; 80053; 80069; 82140; 83690; 83735; 84100; 85025; 92526; 92610; 96365; 96366; 96367; 96375; 96376; 97110; 97116; 97162; 97166; 97530; 97535; 99285-25; A9270; G0378; G0480; J2060; J2405; J3010; J3411; J3475; J3480; J7042; J7050

== ENCOUNTER 2021-10-22 21:09 | Inpatient (IN) | payer OTHER ==
[~2021-10-22] VITALS: Ht 175.3 cm; Wt 98.0 kg
[~2021-10-22 21:09] MED LIST changes: +B-1100 M1 PO; -ESCI10 PO; +OXYC5 PO; +POTA10T PO
[2021-10-22 21:46] LABS: BASOPHILS ABSOLUTE AUTO 0.05 K/mm3 (0.00-0.23); BASOPHILS PERCENT AUTO 0 % (0-2); EOSINOPHILS ABSOLUTE AUTO 0.27 K/mm3 (0.00-0.68); EOSINOPHILS PERCENT AUTO 2 % (0-6); Hematocrit 31.2 % (37.0-53.0); Hemoglobin 11.2 g/dL (13.5-17.5); IMMATURE GRAN PERCENT AUTO 1 % (0-1); LYMPHOCYTES ABSOLUTE AUTO 1.82 K/mm3 (0.84-5.20); LYMPHOCYTES PERCENT AUTO 15 % (21-46); MONOCYTES PERCENT AUTO 12 % (4-13); Mean Corpuscular HGB 35.4 pg (26.0-34.0); Mean Corpuscular HGB Conc 35.9 g/dL (31.5-36.5); Mean Corpuscular Volume 99 fL (80-100); Mean Platelet Volume 10.1 fL (9.1-12.4); NEUTROPHILS ABSOLUTE AUTO 8.65 K/mm3 (1.96-9.15); NEUTROPHILS PERCENT AUTO 70 % (41-73); Platelet Count 114 K/mm3 (150-400); RDW Coefficient Variation 16.4 % (11.7-14.2); RDW Standard Deviation 59.4 fL (35.1-46.3); Red Blood Cell Count 3.16 M/mm3 (4.30-5.90); White Blood Cell Count 12.39 K/mm3 (4.00-11.30)
[2021-10-22 22:09] LABS: Alanine Aminotransfer (ALT/SGP 61 U/L (12-78); Albumin, Blood 1.8 g/dL (3.4-5.0); Albumin/Globulin Ratio 0.4 (0.8-1.8); Alk Phos 189 U/L (50-136); Anion Gap 11 mmol/L (6-16); Aspartate Aminotrans (AST/SGOT 155 U/L (12-37); Bilirubin, Total 5.6 mg/dL (0.1-1.0); Blood Urea Nitrogen 16 mg/dL (8-24); Bun/Creatinine Ratio 18.1 (12.0-20.0); CO2, Blood 35 mmol/L (21-32); Calcium, Blood 8.2 mg/dL (8.5-10.1); Chloride, Blood 74 mmol/L (98-108); Creatinine, Blood 0.89 mg/dL (0.60-1.20); Glomerular Filtration Rate >60 (60-); Glucose, Blood 96 mg/dL (70-99); Sodium, Blood 120 mmol/L (136-145); Total Protein, Blood 6.8 g/dL (6.4-8.2); Troponin I <0.015 ng/mL (0.000-0.040)
[2021-10-23 01:58] LABS: BASOPHILS ABSOLUTE AUTO 0.06 K/mm3 (0.00-0.23); BASOPHILS PERCENT AUTO 0 % (0-2); EOSINOPHILS ABSOLUTE AUTO 0.35 K/mm3 (0.00-0.68); EOSINOPHILS PERCENT AUTO 2 % (0-6); Hematocrit 31.1 % (37.0-53.0); Hemoglobin 11.3 g/dL (13.5-17.5); IMMATURE GRAN ABSOLUTE AUTO 0.18 K/mm3 (0.00-0.10); IMMATURE GRAN PERCENT AUTO 1 % (0-1); LYMPHOCYTES ABSOLUTE AUTO 2.61 K/mm3 (0.84-5.20); LYMPHOCYTES PERCENT AUTO 17 % (21-46); MONOCYTES ABSOLUTE AUTO 1.61 K/mm3 (0.16-1.47); MONOCYTES PERCENT AUTO 11 % (4-13); Mean Corpuscular HGB 35.8 pg (26.0-34.0); Mean Corpuscular HGB Conc 36.3 g/dL (31.5-36.5); Mean Corpuscular Volume 98 fL (80-100); Mean Platelet Volume 10.4 fL (9.1-12.4); NEUTROPHILS ABSOLUTE AUTO 10.28 K/mm3 (1.96-9.15); NEUTROPHILS PERCENT AUTO 68 % (41-73); Platelet Count 135 K/mm3 (150-400); RDW Coefficient Variation 16.5 % (11.7-14.2); Red Blood Cell Count 3.16 M/mm3 (4.30-5.90); White Blood Cell Count 15.09 K/mm3 (4.00-11.30)
[2021-10-23] MEDS ORDERED: FURO40 PO (02:01)
--- NOTE | 2021-10-23 05:28 | NUR ---
Received patient AAOX3, CONFUSE AT TIME. Came in for BLE Edema. Pt at , LUNGS CLEAR. He is on fluid restriction 1-2 liters per day. HE is on continuous N/S infusion with Lactic acid 2.5. Patient sleep during the night with no significant changes from the admition. We will continue to monitor patient.
[2021-10-23 08:46] LABS: International Normalized Ratio 1.42; Prothrombin Time Results 14.6 Sec (9.7-11.5)
--- NOTE | 2021-10-23 10:43 | NUR ---
PER , OK TO FEED. NPO AFTER MIDNITE FOR ANGIOGRAM TOMORROW. TROPS TRENDING DOWN. PATIENT DENIES ANY CHEST PAIN OR DISCOMFORT.
--- NOTE | 2021-10-23 12:15 | NUR ---
BACK FROM ULTRASOUND. TOOK OFF 1 3/4 L FLUID . NO BLEEDING AT SITE. BANDAID ON. IV HOOKED BACK UP. PATIENT RESTING AT THIS TIME
[2021-10-23 12:43] LABS: Albumin, Body Fluid 0.1 g/dL
[2021-10-23 12:45] LABS: Protein, Body Fluid 0.3 g/dL
[2021-10-23 12:51] LABS: Lactate Dehydrogenase, Body Fl 28 U/L
[2021-10-23 12:52] LABS: Glucose, Body Fluid 102 mg/dL
[2021-10-23 12:55] LABS: Automated BF WBC Count 0.241 K/mm3 (0-999); Body Fluid WBC Count 241 /mm3 (0-999)
[2021-10-23 13:33] LABS: pH, Body Fluid 7.9
--- NOTE | 2021-10-23 14:02 | NUR ---
UPDATED PATIENT S.O., [facility] [phone], ON PATIENT CONDITION.
[2021-10-23 14:20] LABS: RBC Count, Body Fluid 5 /mm3 (0-0)
[2021-10-23 14:24] LABS: Total Cell Count, Body Fluid 100
[2021-10-23 14:25] LABS: Appearance, Body Fluid Clear (Clear); Color, Body Fluid Yellow (None-Yellow)
--- NOTE | 2021-10-23 14:34 | NUR ---
TALKED TO . OK TO ORDER UA. GIVE LASIX AFTER ALBUMIN. D'C TYLENOL. CAN ORDER PATIENT HOME MEDS OF OXYCODONE 5 MG Q 8 HR.
[2021-10-23 15:03] LABS: Anion Gap 8 mmol/L (6-16); Blood Urea Nitrogen 16 mg/dL (8-24); Bun/Creatinine Ratio 19.6 (12.0-20.0); CO2, Blood 36 mmol/L (21-32); Calcium, Blood 7.7 mg/dL (8.5-10.1); Chloride, Blood 79 mmol/L (98-108); Creatinine, Blood 0.82 mg/dL (0.60-1.20); Glomerular Filtration Rate >60 (60-); Glucose, Blood 90 mg/dL (70-99); Magnesium, Blood 1.7 mg/dL (1.6-2.4); Phosphorus, Blood 2.8 mg/dL (2.5-4.9); Potassium, Blood 3.4 mmol/L (3.5-5.5); Sodium, Blood 123 mmol/L (136-145)
--- NOTE | 2021-10-23 17:11 | NUR ---
ALERT. ORIENTED. UNSTEADY ON FEET. CAN BE BERY UNCOORDINATED MISSED THE URINAL AND URINATED ON FLOOR, TABLE AND WALL. JESE HOSE ON AND NON SKID SOCKS OVER WITH PATIENT AWARE WHY HE HAS THEM ON. MEDICATED FOR CHRONIC BACK PAIN WITH GOOD RESULTS. PATIENT AWARE WHY HE IS GETTING ALBUMIN AND LASIX. UNLABORED RESPIRATIONS. GOOD APPETITE. TELE ON AND HAS BEEN SR ALL SHIFT 80-90'S. TM
--- NOTE | 2021-10-23 18:46 | NUR ---
PATIENT TELLS RN AFTER HE USED THE BATHROOM AND FLUSHED TOILET THAT STOOL WAS BLACK, FORMED. ADVISED TO NOT FLUSH SO STAFF CAN EVALUATED. VERBALIZES UNDERSTANDING.
[2021-10-24 03:31] LABS: Source, Urine Voided
[2021-10-24 03:33] LABS: Blood, Urine Neg (Neg); Glucose Qualitative, Urine Neg (Neg); Ketones, Urine 1+ (Neg); Leukocyte Esterase, Urine Neg (Neg); Nitrite, Urine Neg (Neg); Protein, Urine Neg (Neg); Specific Gravity, Urine 1.015 (1.003-1.022); Urobilinogen, Urine 3+ (Normal)
[2021-10-24 03:39] LABS: Appearance, Urine Clear (Clear); Bilirubin, Urine 1+ (Neg); Color, Urine Amber (P-Yellow)
[2021-10-24 04:47] LABS: BASOPHILS ABSOLUTE AUTO 0.03 K/mm3 (0.00-0.23); BASOPHILS PERCENT AUTO 0 % (0-2); EOSINOPHILS ABSOLUTE AUTO 0.12 K/mm3 (0.00-0.68); EOSINOPHILS PERCENT AUTO 1 % (0-6); Hematocrit 25.2 % (37.0-53.0); Hemoglobin 8.9 g/dL (13.5-17.5); IMMATURE GRAN ABSOLUTE AUTO 0.04 K/mm3 (0.00-0.10); IMMATURE GRAN PERCENT AUTO 0 % (0-1); LYMPHOCYTES ABSOLUTE AUTO 1.63 K/mm3 (0.84-5.20); LYMPHOCYTES PERCENT AUTO 17 % (21-46); MONOCYTES PERCENT AUTO 13 % (4-13); Mean Corpuscular HGB 35.9 pg (26.0-34.0); Mean Corpuscular HGB Conc 35.3 g/dL (31.5-36.5); Mean Corpuscular Volume 102 fL (80-100); Mean Platelet Volume 10.1 fL (9.1-12.4); NEUTROPHILS ABSOLUTE AUTO 6.78 K/mm3 (1.96-9.15); NEUTROPHILS PERCENT AUTO 69 % (41-73); Platelet Count 101 K/mm3 (150-400); RDW Coefficient Variation 16.9 % (11.7-14.2); RDW Standard Deviation 62.9 fL (35.1-46.3); Red Blood Cell Count 2.48 M/mm3 (4.30-5.90)
[2021-10-24 05:09] LABS: Alanine Aminotransfer (ALT/SGP 48 U/L (12-78); Albumin, Blood 1.6 g/dL (3.4-5.0); Albumin/Globulin Ratio 0.4 (0.8-1.8); Alk Phos 145 U/L (50-136); Anion Gap 5 mmol/L (6-16); Aspartate Aminotrans (AST/SGOT 122 U/L (12-37); Bilirubin, Total 4.3 mg/dL (0.1-1.0); Blood Urea Nitrogen 15 mg/dL (8-24); Bun/Creatinine Ratio 19.9 (12.0-20.0); CO2, Blood 37 mmol/L (21-32); Calcium, Blood 8.1 mg/dL (8.5-10.1); Chloride, Blood 83 mmol/L (98-108); Creatinine, Blood 0.75 mg/dL (0.60-1.20); Globulin, Blood 3.9 g/dL (2.2-4.0); Glomerular Filtration Rate >60 (60-); Glucose, Blood 97 mg/dL (70-99); Potassium, Blood 3.2 mmol/L (3.5-5.5); Sodium, Blood 125 mmol/L (136-145); Total Protein, Blood 5.5 g/dL (6.4-8.2)
--- NOTE | 2021-10-24 08:34 | NUR ---
SUMMARY PT A/O MED PO FOR CHRONIC PAIN.REMOVED TEDS AND PLACED PAS DUE TO CONCERNS WITH TOURNIQUET POTENTIAL DUE TO SWELLING.
--- NOTE | 2021-10-24 17:04 | NUR ---
CONTACTED CONTACTED REGUARDING PT BLOOD PRESSURE W/ LASIX ADMINISTRATION. MED CHANGED TO PO. DR. TOPETE'ED PROPRANOLOL ADMIN.
--- NOTE | 2021-10-24 17:44 | NUR ---
SHIFT SUMMARY PT A&O X4 AND IN PLEASENT MOOD T/O MOST OF SHIFT. PT DID GET UP AND AMBULATE AROUND ROOM DURING SHIFT INDEPENDENTLY. PT HELPED BACK TO BED SAFELY REMINDED TO UTILIZE CALL LIGHT FOR ASSISTANCE WHEN GETTING UP. PT APPEARED INCREASINGLY AGGITATED AND STATED DESIRE TO LEAVE. PT ENCOURAGED TO STAY FOR HEALTH BENEFITS. PT AGREED AND WILLINGLY IS STAYING THE NIGHT. PT MEDICATED FOR PAIN AND ANXIETY PER CIWA SCALE. VSS. PLAN TO START PO LASIX THIS PM. TELE MONITOR IN PLACE. BED ALARM ON, CALL LIGHT W/IN REACH.
[2021-10-25 04:43] LABS: BASOPHILS ABSOLUTE AUTO 0.04 K/mm3 (0.00-0.23); BASOPHILS PERCENT AUTO 1 % (0-2); EOSINOPHILS ABSOLUTE AUTO 0.26 K/mm3 (0.00-0.68); EOSINOPHILS PERCENT AUTO 3 % (0-6); Hematocrit 24.5 % (37.0-53.0); Hemoglobin 8.6 g/dL (13.5-17.5); IMMATURE GRAN ABSOLUTE AUTO 0.04 K/mm3 (0.00-0.10); IMMATURE GRAN PERCENT AUTO 1 % (0-1); LYMPHOCYTES ABSOLUTE AUTO 1.75 K/mm3 (0.84-5.20); LYMPHOCYTES PERCENT AUTO 20 % (21-46); MONOCYTES ABSOLUTE AUTO 1.14 K/mm3 (0.16-1.47); MONOCYTES PERCENT AUTO 13 % (4-13); Mean Corpuscular HGB 35.8 pg (26.0-34.0); Mean Corpuscular HGB Conc 35.1 g/dL (31.5-36.5); Mean Corpuscular Volume 102 fL (80-100); Mean Platelet Volume 10.3 fL (9.1-12.4); NEUTROPHILS ABSOLUTE AUTO 5.35 K/mm3 (1.96-9.15); NEUTROPHILS PERCENT AUTO 62 % (41-73); Platelet Count 97 K/mm3 (150-400); RDW Coefficient Variation 16.7 % (11.7-14.2); RDW Standard Deviation 62.6 fL (35.1-46.3); White Blood Cell Count 8.58 K/mm3 (4.00-11.30)
--- NOTE | 2021-10-25 04:47 | NUR ---
SHIFT SUMMARY RECEIVED PT IN BED AOX2 WITH SOME CONFUSION.TEMPTED TO SELF TRANSFER TO BATHROOM WITHOUT CALLING FOR ASSISSTANCE SEVERAL TIMES PATIENT TEACHING DONE WITH NEGATIVE EFFECT.STAFF CLOSE MONITOR
[2021-10-25 05:20] LABS: Alanine Aminotransfer (ALT/SGP 44 U/L (12-78); Albumin, Blood 1.7 g/dL (3.4-5.0); Albumin/Globulin Ratio 0.5 (0.8-1.8); Alk Phos 125 U/L (50-136); Anion Gap 8 mmol/L (6-16); Aspartate Aminotrans (AST/SGOT 115 U/L (12-37); Bilirubin, Total 3.9 mg/dL (0.1-1.0); Blood Urea Nitrogen 12 mg/dL (8-24); CO2, Blood 36 mmol/L (21-32); Chloride, Blood 85 mmol/L (98-108); Creatinine, Blood 0.67 mg/dL (0.60-1.20); Globulin, Blood 3.7 g/dL (2.2-4.0); Glomerular Filtration Rate >60 (60-); Glucose, Blood 78 mg/dL (70-99); Potassium, Blood 3.2 mmol/L (3.5-5.5); Sodium, Blood 129 mmol/L (136-145); Total Protein, Blood 5.4 g/dL (6.4-8.2)
--- NOTE | 2021-10-26 03:11 | NUR ---
SHIFT SUMMARY PATIENT CALM AND PLEASANT NO S/S OF ALCOHOL WITHDRAWALS ABLE TO VOICE NEEDS ASSISTED TO THE BATHROOM STANDBY ASSIST.C/O BACKPAIN REPOSTION AND PAIN MEDICAION ADMIN WITH POSITIVE EFFECT.
--- NOTE | 2021-10-26 13:09 | NUR ---
Initial Interview with [facility] Community Fund Raiser 1. Who did you speak with? Spoke with patient 2. What is the patient's prior level of functions? Patient lives independently in a trailer home with his life partner Candie. Trailer home has five steps; able to navigate stairs without any concern. Residence has running water, electricity, and sewage. Patient able to perform ADLs with minimal assistance. Uses a CPAP sporadically. Patient has a walker, but does not use at this time. Life partner Candie assists with housekeeping and cooking as needed. 3. What is the patient's current living situation? Patient lives independent with life partner (girlfriend). 4. Is the patient and/or family able to provide transportation to and from doctor's appointments and picking belt operator prescriptions? Patient drives and owns a private vehicle 5. Does patient still drive? Yes 6. POA/PCP/NOK: NOK: Candie life partner [phone]/PCP [facility] Dr. Harmeet Oneill 7. Discharge goals: Home -Medication Management: self-management/Candie assists as needed -Preferred Pharmacy: [facility] -Housekeeping need: Daughter Candie assists as needed 8. List barriers to discharge: None known at this time 9. Discharge Plan: Home 10. PCP Follow up appointment: Will be scheduled within seven calendar days of discharge 11. Other Notes: patient is not a
[2021-10-26] MEDS ORDERED: TAMS.4ER PO ×2 (14:32→14:55)
[2021-10-26] MEDS ORDERED: ESCI20 PO (14:32)
[2021-10-26] MEDS ORDERED: HYDHCL25 PO (14:33)
[2021-10-26] MEDS ORDERED: FURO40 PO (14:53)
[2021-10-26] MEDS ORDERED: OXYC5 PO (14:54)
[2021-10-26] MEDS ORDERED: POTA10T PO (14:54)
[2021-10-26] MEDS ORDERED: B-1100 M1 PO (14:55)
[2021-10-26] MEDS ORDERED: ALDACTONE25 MG PO (14:56)
[2021-10-26] MEDS ORDERED: FOLI1 PO (14:56)
--- NOTE | 2021-10-26 15:50 | NUR ---
DISCHARGE SUMMARY PT DISCHARGED HOME WITH HOME HEALTH. MEDICATIONS FAXED TO [facility]. IV REMOVED PRIOR TO DC. PT EDUCATION REVIEWED WITH PT AND FAMILY PRIOR TO DISCHARGE. PT TRANSPORTED TO FAMILY VEHICLE AT [facility] VIA WHEELCHAIR ALONG WITH PERSONAL BELONGINGS.
--- NOTE | 2021-10-26 17:45 | NUR ---
Per Dr. Jaramillo discharge appropriate on: 10/26/21. Patient does not oppose discharge. Patient is discharged to her residence with Home Health. Transportation to residence provided by family (Candie Loco-girlfriend). [facility]. DME: Front wheeled walker ordered through [facility]; set for delivery to residence on 10/27/21. Patient reminded to contact her PCP if he has any questions regarding medication management or social service needs and to go to urgent care if condition worsens. [facility] will contact patient to schedule hospital PCP follow up with Dr. Harmeet Oneill. No barriers to discharge at this time.
--- NOTE | 2021-10-27 11:29 | NUR ---
Received referral from nurse child caregiver (Alma Forde) on 10/27/2021. Patient discharged 10/26/2021 with orders for home health and elected [facility]. Contacted patient via number provided on demographic sheet to further discuss the above. Spoke with patient's (Candie Looc) who is agreeable to the above. Discussed homebound status definition with patient's . Patient's verbalized understanding. Discussed what home health is vs what it is not (in home caregivers/housekeeping). Patient's verbalized understanding. Discussed the next steps in the process of an initial assessment to determine frequency of visits. Again patient's verbalized understanding. Offered a chance for patient's to ask questions regarding the above of which there were none. Gathered all supporting documentation for referral (face sheet, face to face, med list, H&P, and most recent PT assessment) and sent to [facility] for review. No further interventions required. Carol Ann Ramos Referral Liaison
== END 2021-10-26 15:46 | disposition home health service (06) | DRG 872 ==
LOC: ER 21:09 → MEDS 10-23 01:39
PROVIDERS: Emergency Medicine; Family Medicine; Hospitalist; ADMIT Family Medicine
PROC: 0W9G3ZX Drainage of Peritoneal Cavity, Percutaneous Approach, Diagnostic (ICD-10-PCS; principal; 2021-10-23)
PROC: HZ2ZZZZ Detoxification Services for Substance Abuse Treatment (ICD-10-PCS; 2021-10-23)
PROC: 3E02340 Introduction of Influenza Vaccine into Muscle, Percutaneous Approach (ICD-10-PCS; 2021-10-23)
DX: A41.9 Sepsis, unspecified organism (principal); E87.1 Hypo-osmolality and hyponatremia; F10.239 Alcohol dependence with withdrawal, unspecified; E87.2 Acidosis; K76.6 Portal hypertension; Z23 Encounter for immunization; I10 Essential (primary) hypertension; F32.A Depression, unspecified; K70.11 Alcoholic hepatitis with ascites; D69.59 Other secondary thrombocytopenia; E87.6 Hypokalemia; K70.31 Alcoholic cirrhosis of liver with ascites; F17.210 Nicotine dependence, cigarettes, uncomplicated; Z71.6 Tobacco abuse counseling; R94.31 Abnormal electrocardiogram [ECG] [EKG]; Z88.8 Allergy status to other drugs, medicaments and biological substances; Z79.899 Other long term (current) drug therapy
CPT/HCPCS: 36415; 49083; 71045; 80048; 80053; 81003; 82042; 82945; 83605; 83615; 83735; 83880; 83930; 83935; 83986; 84100; 84157; 84300; 84484; 85025; 85610; 85730; 86140; 87040; 87070; 87205; 89051; 90686; 93005; 93010; 93306; 96365; 96366; 96375; 97110; 97116; 97161; 97165; 97530; 97535; 99285-25; A9270; J0696; J1650; J1940; J2060; J3411; J3475; J7030; J7042; P9041; P9046

== ENCOUNTER 2021-11-15 12:44 | Inpatient (IN) | payer OTHER ==
[~2021-11-15] VITALS: Ht 177.8 cm; Wt 99.8 kg
[~2021-11-15 12:44] MED LIST changes: +ALDACTONE25 MG PO; +ESCI20 PO; +FOLI1 PO; +FURO40 PO; +HYDHCL25 PO; +TAMS.4ER PO
[2021-11-15 14:00] LABS: BASOPHILS ABSOLUTE AUTO 0.04 K/mm3 (0.00-0.23); BASOPHILS PERCENT AUTO 0 % (0-2); EOSINOPHILS ABSOLUTE AUTO 0.14 K/mm3 (0.00-0.68); EOSINOPHILS PERCENT AUTO 2 % (0-6); Hemoglobin 9.6 g/dL (13.5-17.5); IMMATURE GRAN ABSOLUTE AUTO 0.04 K/mm3 (0.00-0.10); IMMATURE GRAN PERCENT AUTO 0 % (0-1); LYMPHOCYTES ABSOLUTE AUTO 1.74 K/mm3 (0.84-5.20); LYMPHOCYTES PERCENT AUTO 19 % (21-46); MONOCYTES ABSOLUTE AUTO 1.28 K/mm3 (0.16-1.47); MONOCYTES PERCENT AUTO 14 % (4-13); Mean Corpuscular HGB 34.3 pg (26.0-34.0); Mean Corpuscular HGB Conc 34.3 g/dL (31.5-36.5); Mean Corpuscular Volume 100 fL (80-100); Mean Platelet Volume 9.6 fL (9.1-12.4); NEUTROPHILS ABSOLUTE AUTO 5.74 K/mm3 (1.96-9.15); NEUTROPHILS PERCENT AUTO 64 % (41-73); Platelet Count 142 K/mm3 (150-400); RDW Coefficient Variation 14.1 % (11.7-14.2); RDW Standard Deviation 51.4 fL (35.1-46.3); White Blood Cell Count 8.98 K/mm3 (4.00-11.30)
[2021-11-15 14:11] LABS: Alanine Aminotransfer (ALT/SGP 43 U/L (12-78); Albumin, Blood 1.8 g/dL (3.4-5.0); Albumin/Globulin Ratio 0.4 (0.8-1.8); Alk Phos 123 U/L (50-136); Anion Gap 8 mmol/L (6-16); Aspartate Aminotrans (AST/SGOT 101 U/L (12-37); Bilirubin, Total 3.2 mg/dL (0.1-1.0); Blood Urea Nitrogen 8 mg/dL (8-24); Bun/Creatinine Ratio 10.5 (12.0-20.0); CO2, Blood 29 mmol/L (21-32); Calcium, Blood 8.4 mg/dL (8.5-10.1); Chloride, Blood 84 mmol/L (98-108); Creatinine, Blood 0.77 mg/dL (0.60-1.20); Globulin, Blood 4.6 g/dL (2.2-4.0); Glomerular Filtration Rate >60 (60-); Glucose, Blood 105 mg/dL (70-99); Potassium, Blood 4.3 mmol/L (3.5-5.5); Sodium, Blood 121 mmol/L (136-145); Total Protein, Blood 6.4 g/dL (6.4-8.2)
[2021-11-15 18:48] LABS: International Normalized Ratio 1.53; Prothrombin Time Results 15.6 Sec (9.7-11.5)
[2021-11-16 05:22] LABS: BASOPHILS ABSOLUTE AUTO 0.02 K/mm3 (0.00-0.23); BASOPHILS PERCENT AUTO 0 % (0-2); EOSINOPHILS ABSOLUTE AUTO 0.14 K/mm3 (0.00-0.68); EOSINOPHILS PERCENT AUTO 2 % (0-6); Hematocrit 21.1 % (37.0-53.0); Hemoglobin 7.3 g/dL (13.5-17.5); IMMATURE GRAN ABSOLUTE AUTO 0.02 K/mm3 (0.00-0.10); IMMATURE GRAN PERCENT AUTO 0 % (0-1); LYMPHOCYTES ABSOLUTE AUTO 1.86 K/mm3 (0.84-5.20); LYMPHOCYTES PERCENT AUTO 29 % (21-46); MONOCYTES ABSOLUTE AUTO 0.99 K/mm3 (0.16-1.47); MONOCYTES PERCENT AUTO 15 % (4-13); Mean Corpuscular HGB 34.3 pg (26.0-34.0); Mean Corpuscular HGB Conc 34.6 g/dL (31.5-36.5); Mean Corpuscular Volume 99 fL (80-100); Mean Platelet Volume 9.7 fL (9.1-12.4); NEUTROPHILS ABSOLUTE AUTO 3.47 K/mm3 (1.96-9.15); NEUTROPHILS PERCENT AUTO 53 % (41-73); Platelet Count 101 K/mm3 (150-400); RDW Standard Deviation 50.2 fL (35.1-46.3); Red Blood Cell Count 2.13 M/mm3 (4.30-5.90)
[2021-11-16 05:58] LABS: Alanine Aminotransfer (ALT/SGP 30 U/L (12-78); Albumin, Blood 2.1 g/dL (3.4-5.0); Albumin/Globulin Ratio 0.8 (0.8-1.8); Alk Phos 83 U/L (50-136); Anion Gap 7 mmol/L (6-16); Aspartate Aminotrans (AST/SGOT 66 U/L (12-37); Bilirubin, Total 3.2 mg/dL (0.1-1.0); Blood Urea Nitrogen 8 mg/dL (8-24); Bun/Creatinine Ratio 9.7 (12.0-20.0); CO2, Blood 31 mmol/L (21-32); Calcium, Blood 7.9 mg/dL (8.5-10.1); Chloride, Blood 86 mmol/L (98-108); Creatinine, Blood 0.83 mg/dL (0.60-1.20); Globulin, Blood 2.8 g/dL (2.2-4.0); Glomerular Filtration Rate >60 (60-); Glucose, Blood 73 mg/dL (70-99); Potassium, Blood 3.6 mmol/L (3.5-5.5); Sodium, Blood 124 mmol/L (136-145); Total Protein, Blood 4.9 g/dL (6.4-8.2)
--- NOTE | 2021-11-16 06:11 | NUR ---
SHIFT SUMMARY PATIENT ALERT AND ORIENTED X3, OCCASIONAL FORGETFULNESS. MEDICATED PER EMAR FOR PAIN AND SLEEP. HAD NO COMPLAINTS OF SHORTNESS OF BREATH. NO ACUTE ISSUES NOTED OVERNIGHT. BED IN LOWEST POSITION WITH WHEELS LOCKED. CALL LIGHT WITHIN REACH. REPORT GIVEN TO ONCOMING RN.
--- NOTE | 2021-11-16 15:13 | NUR ---
Pt. is alert and lying in bed. Pt. welcomes my visit. Pt. is unsettled about the need to drain fluid from his body. Listen empathetically. Establish rapport. [place] with pt. Pt. verbalizes gratitude for the spiritual care visit and welcomes me to return.
--- NOTE | 2021-11-16 19:36 | NUR ---
SUMMARY- PT A/O X3, FORGETFUL. SLEEPY TODAY, DOZING ON/OFF, AWAKENS EASILY. CHRONIC PAIN IN NECK CONTROLLED WITH OXYCODONE 5MG PRN Q6. PT HAS ASCITES AND ABD FIRM AND DISTENDED. STATES IT FEELS LESS DISTENDED. LOWER EXT +2-3 PITTING EDEMA. ELECTRALYTES REPLACED TODAY, LABS TO FOLLOW AM. BANANA BAG ORDERED THIS PM X1 BAG. PT STATED HE HAD A DARK STOOL THIS PM. LET NOC RN KNOW AND PT TOLD WE WANT TO SEE HIS STOOL SHOULD HE HAVE ATOTHER, WILL SEND FOR OCCULT. PT'S H/H LOW THIS AM. DR OLVERA AND FOLLOWING.
[2021-11-16 22:33] LABS: Stool Occult Blood Guaiac 1 Pos (Neg)
[2021-11-17 07:04] LABS: Anion Gap 6 mmol/L (6-16); Blood Urea Nitrogen 7 mg/dL (8-24); Bun/Creatinine Ratio 9.5 (12.0-20.0); CO2, Blood 31 mmol/L (21-32); Calcium, Blood 8.1 mg/dL (8.5-10.1); Chloride, Blood 92 mmol/L (98-108); Creatinine, Blood 0.74 mg/dL (0.60-1.20); Glomerular Filtration Rate >60 (60-); Glucose, Blood 87 mg/dL (70-99); Potassium, Blood 3.8 mmol/L (3.5-5.5); Sodium, Blood 129 mmol/L (136-145)
[2021-11-17 07:30] LABS: BASOPHILS ABSOLUTE AUTO 0.02 K/mm3 (0.00-0.23); BASOPHILS PERCENT AUTO 0 % (0-2); EOSINOPHILS ABSOLUTE AUTO 0.09 K/mm3 (0.00-0.68); EOSINOPHILS PERCENT AUTO 1 % (0-6); Hematocrit 23.6 % (37.0-53.0); IMMATURE GRAN ABSOLUTE AUTO 0.02 K/mm3 (0.00-0.10); IMMATURE GRAN PERCENT AUTO 0 % (0-1); LYMPHOCYTES ABSOLUTE AUTO 1.61 K/mm3 (0.84-5.20); LYMPHOCYTES PERCENT AUTO 23 % (21-46); MONOCYTES ABSOLUTE AUTO 1.05 K/mm3 (0.16-1.47); MONOCYTES PERCENT AUTO 15 % (4-13); Mean Corpuscular HGB Conc 33.9 g/dL (31.5-36.5); Mean Corpuscular Volume 100 fL (80-100); Mean Platelet Volume 9.7 fL (9.1-12.4); NEUTROPHILS ABSOLUTE AUTO 4.18 K/mm3 (1.96-9.15); NEUTROPHILS PERCENT AUTO 60 % (41-73); Platelet Count 109 K/mm3 (150-400); RDW Coefficient Variation 14.2 % (11.7-14.2); RDW Standard Deviation 52.2 fL (35.1-46.3); Red Blood Cell Count 2.35 M/mm3 (4.30-5.90); White Blood Cell Count 6.97 K/mm3 (4.00-11.30)
--- NOTE | 2021-11-17 11:28 | NUR ---
Per chart review with Dr. Machado, patient appropriate for discharge. I scheduled a hospital follow up with patient's PCP, Dr. Harmeet Oneill on Monday11/22/2021 at 11:20AM. Per Dr. Machado, patient will also need a photolithographer referral. I noted that in the appointment scheduled with Tyler. I also discussed discharge plan with patient's nurse and . states she has an appointment at 1pm and can provide discharge transportation at 2:00PM or shortly after. Patient agreeable to discharge plan, denies barriers to return home.
[2021-11-17] MEDS ORDERED: OXYC5 PO (13:34)
[2021-11-17] MEDS ORDERED: PANT40 PO (13:35)
--- NOTE | 2021-11-17 15:59 | NUR ---
DISCHARGE SUMMARY: PATIENT REPORTED ABDOMINAL DISCOMFORT/PAIN, ESPECIALLY WITH MOVEMENT. DENIED AT REST. MEDICATED PER PRNS. PATIENT INDEPENDENT IN THE ROOM. PATIENT REPORTED A DECREASED APPETITE, BUT DENIED NAUSEA. PATIENT TOLERATED PO INTAKE WITHOUT DIFFICULTY. PATIENT READY FOR DISCHARGE PER ORDERS. DISCHARGE PRESCRIPTIONS SENT TO [facility] PER PATIENT REQUEST. PATIENT PROVIDED WITH PHYSICAL SCRIPT FOR PRN PAIN MEDICATION. DISCHARGE INSTRUCTIONS AND EDUCATION PROVIDED BY ELICIA DENNEY. ALL QUESTIONS AND CONCERNS ADDRESSED. PATIENT DISCHARGED IN WHEELCHAIR WITH REHAB TRAINER. PATIENT STABLE AT TIME OF DISCHARGE.
--- NOTE | 2021-11-18 08:51 | NUR ---
Patient is a [facility] patient who was transferred to [facility] on 11/15/2021 due to hyponatremia. Patient discharged 11/17/2021 with resumption of home health orders. Gathered supporting documentation for resumption (face sheet, discharge order, med list, and H&P) and faxed to [facility] for review. No further interventions required. Carol Ann Ramos Referral Liaison
== END 2021-11-17 15:18 | disposition home or self-care (01) | DRG 433 ==
LOC: ER 12:44 → MEDS 17:24
PROVIDERS: Emergency Medicine; ADMIT Family Medicine
PROC: 0W9G3ZZ Drainage of Peritoneal Cavity, Percutaneous Approach (ICD-10-PCS; principal; 2021-11-15)
PROC: HZ2ZZZZ Detoxification Services for Substance Abuse Treatment (ICD-10-PCS; 2021-11-15)
PROC: 3E02340 Introduction of Influenza Vaccine into Muscle, Percutaneous Approach (ICD-10-PCS; 2021-11-15)
DX: K70.31 Alcoholic cirrhosis of liver with ascites (principal); E87.1 Hypo-osmolality and hyponatremia; I10 Essential (primary) hypertension; F32.A Depression, unspecified; F10.10 Alcohol abuse, uncomplicated; F17.200 Nicotine dependence, unspecified, uncomplicated; Y90.0 Blood alcohol level of less than 20 mg/100 ml; E87.8 Other disorders of electrolyte and fluid balance, not elsewhere classified; Z88.8 Allergy status to other drugs, medicaments and biological substances; Z79.899 Other long term (current) drug therapy; Z23 Encounter for immunization
CPT/HCPCS: 36415; 49083; 80053; 80069; 82272; 83735; 85025; 85610; 90686; 96365-59; 97116; 97162; 97165; 97530; 97535; 99285-25; A9270; G0480; J1650; J3411; J3475; J7030; J7042; P9046

== ENCOUNTER 2021-11-19 09:05 | Day surgery (SDC) | payer OTHER ==
[~2021-11-19 09:05] MED LIST changes: +PANT40 PO
== END 2021-11-19 22:59 | disposition home or self-care (01) ==
LOC: US 09:05
DX: K70.31 Alcoholic cirrhosis of liver with ascites (principal)
CPT/HCPCS: 49083

== ENCOUNTER 2021-11-29 14:40 | Day surgery (SDC) | payer OTHER | END 2021-11-29 23:27 | disposition home or self-care (01) | LOC: US 14:40 | DX: K70.31 Alcoholic cirrhosis of liver with ascites (principal) | CPT/HCPCS: 49083 ==

== ENCOUNTER 2021-12-06 13:40 | Day surgery (SDC) | payer OTHER | END 2021-12-06 23:26 | disposition home or self-care (01) | LOC: US 13:40 | DX: K70.31 Alcoholic cirrhosis of liver with ascites (principal) | CPT/HCPCS: 49083 ==

== ENCOUNTER 2021-12-15 13:27 | Day surgery (SDC) | payer OTHER | END 2021-12-15 23:04 | disposition home or self-care (01) | LOC: US 13:27 | DX: K70.31 Alcoholic cirrhosis of liver with ascites (principal) | CPT/HCPCS: 49083 ==

== ENCOUNTER 2021-12-22 13:47 | Day surgery (SDC) | payer OTHER | END 2021-12-22 23:20 | disposition home or self-care (01) | LOC: US 13:47 | DX: K70.31 Alcoholic cirrhosis of liver with ascites (principal) | CPT/HCPCS: 49083 ==

== ENCOUNTER 2021-12-25 20:41 | Emergency (ER) | payer OTHER ==
[~2021-12-25] VITALS: Ht 175.3 cm; Wt 81.7 kg
[2021-12-25 21:21] LABS: BASOPHILS ABSOLUTE AUTO 0.01 K/mm3 (0.00-0.23); BASOPHILS PERCENT AUTO 0 % (0-2); EOSINOPHILS PERCENT AUTO 0 % (0-6); IMMATURE GRAN ABSOLUTE AUTO 0.11 K/mm3 (0.00-0.10); IMMATURE GRAN PERCENT AUTO 1 % (0-1); LYMPHOCYTES ABSOLUTE AUTO 1.61 K/mm3 (0.84-5.20); LYMPHOCYTES PERCENT AUTO 11 % (21-46); MONOCYTES ABSOLUTE AUTO 1.75 K/mm3 (0.16-1.47); MONOCYTES PERCENT AUTO 12 % (4-13); Mean Corpuscular HGB 28.9 pg (26.0-34.0); Mean Corpuscular HGB Conc 29.7 g/dL (31.5-36.5); Mean Corpuscular Volume 97 fL (80-100); Mean Platelet Volume 9.5 fL (9.1-12.4); NEUTROPHILS ABSOLUTE AUTO 11.18 K/mm3 (1.96-9.15); NEUTROPHILS PERCENT AUTO 76 % (41-73); Platelet Count 147 K/mm3 (150-400); RDW Coefficient Variation 15.9 % (11.7-14.2); RDW Standard Deviation 56.5 fL (35.1-46.3); Red Blood Cell Count 1.42 M/mm3 (4.30-5.90); White Blood Cell Count 14.66 K/mm3 (4.00-11.30)
[2021-12-25 21:23] LABS: Hematocrit 13.8 % (37.0-53.0); Hemoglobin 4.1 g/dL (13.5-17.5)
[2021-12-25 21:31] LABS: Albumin, Blood 1.7 g/dL (3.4-5.0); Albumin/Globulin Ratio 0.4 (0.8-1.8); Bilirubin, Total 1.5 mg/dL (0.1-1.0); Bun/Creatinine Ratio 18.7 (12.0-20.0); Creatinine, Blood 2.03 mg/dL (0.60-1.20); Globulin, Blood 4.1 g/dL (2.2-4.0); Total Protein, Blood 5.8 g/dL (6.4-8.2)
[2021-12-25 22:05] LABS: International Normalized Ratio 1.61; Prothrombin Time Results 16.4 Sec (9.7-11.5)
[2021-12-25 23:11] LABS: Influenza A, PCR NEGATIVE (NEGATIVE); Influenza B, PCR NEGATIVE (NEGATIVE); Resp Syncytial Virus, PCR NEGATIVE (NEGATIVE); SARS-Cov-2 (COVID-19) PCR, MMC NEGATIVE (NEGATIVE)
[2021-12-26 00:41] LABS: Source, Urine Straight Cath
[2021-12-26 00:43] LABS: Bilirubin, Urine Neg (Neg); Blood, Urine Neg (Neg); Glucose Qualitative, Urine Neg (Neg); Ketones, Urine 1+ (Neg); Leukocyte Esterase, Urine Neg (Neg); Nitrite, Urine Neg (Neg); Protein, Urine 1+ (Neg); Urobilinogen, Urine 1+ (Normal)
[2021-12-26 00:50] LABS: Appearance, Urine Clear (Clear); Color, Urine Yellow (P-Yellow)
== END 2021-12-26 02:00 | disposition short-term general hospital (02) ==
LOC: ER 20:41
PROVIDERS: Emergency Medicine
DX: G93.40 Encephalopathy, unspecified (principal); K72.90 Hepatic failure, unspecified without coma; D62 Acute posthemorrhagic anemia; K92.2 Gastrointestinal hemorrhage, unspecified; I10 Essential (primary) hypertension; Z88.8 Allergy status to other drugs, medicaments and biological substances; Z79.899 Other long term (current) drug therapy; Z87.891 Personal history of nicotine dependence
CPT/HCPCS: 0241U; 36415; 71045; 80053; 82140; 83605; 85025; 85610; 86850; 86900; 86901; 86920; 93005; 93010; C9113; J0696; J7030; P9016